=== PATIENT | male | born 1945 | race Hispanic/Latino ===

== ENCOUNTER 2022-05-04 23:50 | Inpatient (IN) | payer MEDICARE ==
--- NOTE | 2022-05-05 00:20 | Emergency Department Report ---
HPI - General Chief Complaint: Altered Mental Status Time Seen by Provider: 05/05/22 00:00 - [facility] HPI: Room 1 Patient is a 76-year-old male present with chief complaint of altered mental status. Per EMS the patient lives at home alone. The patient has zoroastrian members who come to check on the patient reported the patient has been on a sofa for the past 3 days. The charge nurse check on the patient 3 days ago and found the patient sitting on his sofa. The patient had apparently been eating there and had defecated on himself. [employer]ab[employer] members cleaned them off and then came back to check on him again 36 hours later to find him in the same position and again soiling himself. They came back to check on him later this evening and the patient was still in the same place appearing confused. Subsequently EMS was called and the patient was transported to the ED. In the ED the patient denies complaints but seems slightly confused. ED Past Medical Hx - Past Medical History Hx Hypertension: Yes Hx Diabetes: Yes Hx Arthritis: Yes (Gout) Additional medical history: Hyperlipidemia - Family History Family history: no significant - Social History Smoking Status: Former Smoker (None [id number]) Substance Use Type: None (Denies illicit drug use), Alcohol (Occasional) ED Review of Systems ROS: Stated complaint: AMS,FAILURE TO THRIVE Other details as noted in HPI Constitutional: no symptoms reported Eyes: denies: eye pain ENT: denies: throat pain Respiratory: no symptoms reported Cardiovascular: denies: chest pain Endocrine: no symptoms reported Gastrointestinal: denies: abdominal pain Genitourinary: denies: dysuria Musculoskeletal: denies: back pain Neurological: confusion Physical Exam - Physical Exam Vital Signs: Vital Signs 05/05/22 00:02 Temperature 98 F Pulse Rate 83 Respiratory 20 Rate Blood Pressure 137/80 O2 Sat by Pulse 95 Oximetry Physical Exam: GENERAL: The patient is well-developed well-nourished male lying on stretcher not appearing to be in acute distress. [] HEENT: Normocephalic. Atraumatic. Extraocular motions are intact. Patient has moist mucous membranes. NECK: Supple. Trachea midline CHEST/LUNGS: Clear to auscultation. There is no respiratory distress noted. HEART/CARDIOVASCULAR: Regular. There is no tachycardia. There is no gallop rub or murmur. ABDOMEN: Abdomen is soft, nontender. Patient has normal bowel sounds. There is no abdominal distention. SKIN: There is no rash. There is no edema. There is no diaphoresis. NEURO: The patient is awake and alert. Patient seems confused at times. The patient is cooperative. The patient has no focal neurologic deficits. The patient has normal speech. GCS 15 MUSCULOSKELETAL: There is no evidence of acute injury. ED Course Vital Signs 05/05/22 00:02 Temperature 98 F Pulse Rate 83 Respiratory 20 Rate Blood Pressure 137/80 O2 Sat by Pulse 95 Oximetry ED Medical Decision Making - Lab Data Result diagrams: 05/05/22 01:15 05/05/22 01:15 Laboratory Tests 05/05/22 05/05/22 05/05/22 01:15 01:15 01:15 WBC 10.6 RBC 5.18 H Hgb 14.4 Hct 43.7 MCV 84 MCH 28 MCHC 33 RDW 15.1 Plt Count 317 Lymph % (Auto) 16.1 [place] % (Auto) 6.5 Eos % (Auto) 1.1 Baso % (Auto) 0.5 Lymph # (Auto) 1.7 [place] # (Auto) 0.7 Eos # (Auto) 0.1 Baso # (Auto) 0.1 Seg Neutrophils % 75.8 H Seg Neutrophils # 8.0 H VBG pH Sodium 141 Potassium 4.0 Chloride 99.1 Carbon Dioxide 31 H Anion Gap 15 BUN 17 Creatinine 1.0 Estimated GFR > 60 BUN/Creatinine Ratio 17 Glucose 206 H Calcium 10.1 Total Bilirubin 0.70 AST 16 ALT 19 Alkaline Phosphatase 90 Ammonia CK-MB (CK-2) 3.8 Troponin T < 0.010 Total Protein 7.4 Albumin 3.7 L Albumin/Globulin Ratio 1.0 TSH Free T4 Plasma/Serum Alcohol < 0.01 05/05/22 05/05/22 05/05/22 01:15 01:15 01:15 WBC RBC Hgb Hct MCV MCH MCHC RDW Plt Count Lymph % (Auto) [place] % (Auto) Eos % (Auto) Baso % (Auto) Lymph # (Auto) [place] # (Auto) Eos # (Auto) Baso # (Auto) Seg Neutrophils % Seg Neutrophils # VBG pH 7.334 Sodium Potassium Chloride Carbon Dioxide Anion Gap BUN Creatinine Estimated GFR BUN/Creatinine Ratio Glucose Calcium Total Bilirubin AST ALT Alkaline Phosphatase Ammonia 10.0 L CK-MB (CK-2) Troponin T Total Protein Albumin Albumin/Globulin Ratio TSH 3.030 Free T4 1.26 Plasma/Serum Alcohol - EKG Data -: EKG Interpreted by Me EKG shows normal: sinus rhythm Rate: normal - EKG Data When compared to previous EKG there are: previous EKG unavailable Interpretation: other (Right bundle branch block) - Radiology Data Radiology results: report reviewed (CT head), image reviewed (CT head) [facility] [address] [id number] Cat Scan Report Signed Patient: ANTONINO HAAS MR#: [id number] : 1945 Acct:[id number] Age/Sex: 76 / M ADM Date: 05/04/22 Loc: ED Attending Dr: Ordering Physician: ONUR CERON MD Date of Service: 05/05/22 Procedure(s): CT head/brain wo con Accession Number(s): [id number] cc: ONUR CERON MD CT HEAD WITHOUT CONTRAST INDICATION / CLINICAL INFORMATION: Altered mental status. TECHNIQUE: All CT scans at this location are performed using CT dose reduction for ALARA by means of automated exposure control. COMPARISON: None available. FINDINGS: BRAIN PARENCHYMA: No acute intracranial hemorrhage. No evidence of recent infarct. No mass effect or midline shift. There is age-appropriate generalized atrophy. Confluent areas of decreased attenuation are seen along the periventricular white matter, likely representing chronic microvascular ischemic changes. VENTRICULAR SYSTEM/EXTRA-AXIAL SPACES: Ventricles are normal for age. No extra- axial fluid collection. ORBITS: Normal as visualized. SKELETAL SYSTEM/SOFT TISSUES: Normal bones and soft tissues. PARANASAL SINUSES/MASTOID AIR CELLS: No significant abnormality. ADDITIONAL FINDINGS: None. IMPRESSION: 1. No acute intracranial abnormality. 2. Additional findings as above. Signer Name: Elia Alves MD Signed: 05/05/2022 1:08 AM Workstation Name: [id number] Transcribed By: MN Dictated By: Elia Alves MD Electronically Authenticated By: Elia Alves MD Signed Date/Time: 05/05/22107 DD/ 6 TD/TT: - Differential Diagnosis Altered mental status, DKA, metabolic encephalopathy Critical care attestation.: If time is entered above; I have spent that time in minutes in the direct care of this critically ill patient, excluding procedure time. ED Disposition Clinical Impression: Altered mental status Disposition: 09 ADMITTED INPATIENT Is pt being admited?: Yes Does the pt Need Aspirin: Yes Condition: Fair Referrals: PRIMARY CARE,MD [Primary Care Provider] - 3-5 Days Time of Disposition: 02:20 (Care transferred to hospitalist (Dr. Brown))
--- NOTE | 2022-05-05 01:13 | Cat Scan Report ---
CT HEAD WITHOUT CONTRAST INDICATION / CLINICAL INFORMATION: Altered mental status. TECHNIQUE: All CT scans at this location are performed using CT dose reduction for ALARA by means of automated exposure control. COMPARISON: None available. FINDINGS: BRAIN PARENCHYMA: No acute intracranial hemorrhage. No evidence of recent infarct. No mass effect or midline shift. There is age-appropriate generalized atrophy. Confluent areas of decreased attenuation are seen along the periventricular white matter, likely representing chronic microvascular ischemic changes. VENTRICULAR SYSTEM/EXTRA-AXIAL SPACES: Ventricles are normal for age. No extra-axial fluid collection . ORBITS: Normal as visualized. SKELETAL SYSTEM/SOFT TISSUES: Normal bones and soft tissues. PARANASAL SINUSES/MASTOID AIR CELLS: No significant abnormality. ADDITIONAL FINDINGS: None. IMPRESSION: 1. No acute intracranial abnormality. 2. Additional findings as above. Signer Name: Elia Alves MD Signed: 05/05/2022 1:08 AM Workstation Name: [id number]
[2022-05-05 02:03] LABS: Basophils # (Auto) 0.1 K/mm3 (0.0-0.1); Basophils % (Auto) 0.5 % (0.0-1.8); Eosinophils # (Auto) 0.1 K/mm3 (0.0-0.4); Eosinophils % (Auto) 1.1 % (0.0-4.3); Hematocrit 43.7 % (35.5-45.6); Hemoglobin 14.4 gm/dl (11.8-15.2); Lymphocytes # (Auto) 1.7 K/mm3 (1.2-5.4); Lymphocytes % (Auto) 16.1 % (13.4-35.0); Mean Corpuscular HGB Conc 33 % (32-34); Mean Corpuscular Volume 84 fl (84-94); Monocytes # (Auto) 0.7 K/mm3 (0.0-0.8); Monocytes % (Auto) 6.5 % (0.0-7.3); Platelet Count 317 K/mm3 (140-440); Red Blood Count 5.18 M/mm3 (3.65-5.03); Red Cell Distribution Width 15.1 % (13.2-15.2)
[2022-05-05 02:05] LABS: Creatine Kinase MB 3.8 ng/mL (0.0-4.0)
[2022-05-05 02:07] LABS: Alanine Aminotransferase 19 units/L (7-56); Albumin 3.7 g/dL (3.9-5); BUN/Creatinine Ratio 17; Blood Urea Nitrogen 17 mg/dL (9-20); Calcium 10.1 mg/dL (8.4-10.2); Hemolysis Index 3
[2022-05-05 02:11] LABS: Free T4 (Free Thyroxine) 1.26 ng/dL (0.76-1.46)
[2022-05-05 02:57] LABS: Bilirubin,Urine Negative (Negative); Blood,Urine Negative (Negative); Color,Urine Yellow (Yellow); Protein,Urine <15 mg/dL mg/dL (Negative)
[2022-05-05 02:58] LABS: Urobilinogen,Urine < 2.0 mg/dL (<2.0)
[2022-05-05 03:00] LABS: Bacteria,Urine 1+ /HPF (Negative); Hyaline Casts,Urine 1 /LPF; Mucus,Urine FEW /HPF; RBC,Urine < 1.0 /HPF (0.0-6.0)
[2022-05-05] MEDS ORDERED: MORPHINE 4 MG/1 ML INJ IV PRN (03:32)
[2022-05-05] MEDS ORDERED: MORPHINE 2 MG/1 ML INJ IV PRN (03:32)
[2022-05-05] MEDS ORDERED: ONDANSETRON 4 MG/2 ML INJ IV PRN (03:32)
[2022-05-05] MEDS ORDERED: ACETAMINOPHEN 325 MG TAB PO PRN (03:32)
[2022-05-05] MEDS ORDERED: DEXTROSE 50% IN WATER (25GM) 50 ML SYRINGE IV PRN (03:32)
[2022-05-05] MEDS ORDERED: MAGNESIUM HYDROXIDE (MOM) ORAL LIQD UDC PO PRN (03:32)
--- NOTE | 2022-05-05 03:48 | History and Physical Report ---
History of Present Illness Date of examination: 05/05/22 Date of admission: 05/05/22 Chief complaint: Altered Mental Status History of present illness: 76-year-old -Serbian male with known history of hypertension, diabetes mellitus and hyperlipidemia who lives alone at home brought into the emergency room today for changes in mental status. [employer] members and other relatives check on patient almost on a daily basis. He however has been found to be sitting on exam so far for the past 3 days defecating on himself. [employer] members and other relatives were said to have cleaned him up. He states he has just not been able to get around well performing this ADLs. Work-up in the emergency room today, CT scan of the head was unremarkable. Labs were also found to be unremarkable except for blood glucose of 206. Past History Past Medical History: diabetes, hypertension, hyperlipidemia Social history: smoking (Former Smoker), alcohol abuse (Occasionally) Family history: no significant family history Medications and Allergies Allergies Allergy/AdvReac Type Severity Reaction Status Date / Time No Known Allergies Allergy Verified 05/05/22 03:47 Review of Systems Constitutional: no fever, no chills Ears, nose, mouth and throat: no nasal congestion, no sore throat Cardiovascular: no chest pain, no palpitations Respiratory: no cough, no shortness of breath Gastrointestinal: no abdominal pain, no nausea, no vomiting, no diarrhea Genitourinary Male: no dysuria, no hematuria, no flank pain Musculoskeletal: no neck pain, no low back pain Integumentary: no rash, no pruritis Neurological: no headaches, no confusion Psychiatric: no anxiety, no depression Endocrine: no polyphagia, no polydipsia, no polyuria, no nocturia Exam - Constitutional Vitals: Temp Pulse Resp BP Pulse Ox 98.6 F 74 12 172/85 97 05/05/22 00:42 05/05/22 02:46 05/05/22 02:46 05/05/22 02:46 05/05/22 02:46 General appearance: Present: no acute distress, well-nourished - EENT Eyes: Present: PERRL, EOM intact. Absent: scleral icterus ENT: hearing intact, clear oral mucosa, dentition normal - Neck Neck: Present: supple, normal ROM - Respiratory Respiratory effort: normal Respiratory: bilateral: CTA - Cardiovascular Rhythm: regular Heart Sounds: Present: S1 & S2. Absent: gallop, systolic murmur, diastolic murmur, rub, click - Extremities Extremities: no ischemia, pulses intact, pulses symmetrical, No edema, normal temperature, normal color, Full ROM Peripheral Pulses: within normal limits - Abdominal General gastrointestinal: Present: soft, non-tender, non-distended, normal bowel sounds. Absent: mass - Integumentary Integumentary: Present: clear, warm, dry, normal turgor. Absent: rash - Musculoskeletal Musculoskeletal: strength equal bilaterally - Psychiatric Psychiatric: appropriate mood/affect, intact judgment & insight, memory intact, cooperative - Neurologic Neurologic: CNII-XII intact, no focal deficits, moves all extremities HEART Score - HEART Score Troponin: Troponin T < 0.010 ng/mL (0.00-0.029) 05/05/22 01:15 Results - Labs CBC & Chem 7: 05/05/22 01:15 05/05/22 01:15 Labs: Abnormal lab results 05/05/22 05/05/22 05/05/22 Range/Units 01:15 01:15 01:15 RBC 5.18 H (3.65-5.03) M/mm3 Seg Neutrophils % 75.8 H (40.0-70.0) % Seg Neutrophils # 8.0 H (1.8-7.7) K/mm3 Carbon Dioxide 31 H (22-30) mmol/L Glucose 206 H (75-100) mg/dL Ammonia 10.0 L (25-60) umol/L Albumin 3.7 L (3.9-5) g/dL Assessment and Plan Assessment: 1. Altered mental status 2. Diabetes mellitus 3. Hyperlipidemia 4. Inability to take care of self Plan: 1. Patient admitted and placed on medical floor. Will monitor mental status. 2. Patient placed on sliding scale insulin. We will monitor Accu-Cheks. 3. Consult placed to case management for evaluation and possible placement. 4. Resume other routine home medications once reconciled. DVT prophylaxis: Subcutaneous heparin CODE STATUS: Full code
[2022-05-05] MEDS: INSULIN LISPRO 100 UNIT/ML SUB-Q SCH ×4 (09:26→22:31)
--- NOTE | 2022-05-05 10:24 | Progress Note ---
Assessment and Plan Assessment and plan: 76-year-old -[place] male with known history of hypertension, diabetes mellitus and hyperlipidemia who lives alone at home brought into the emergency room for changes in mental status. [employer] members and other relatives check on patient almost on a daily basis. He reportedly, however, was found to be sitting for the past 3 days in feces after defecating on himself. [employer] members and other relatives were said to have cleaned him up. He stated he has just not been able to get around well performing this ADLs. Work-up in the emergency room today, CT scan of the head was unremarkable. Severe debility/deconditioning Acute encephalopathy Diabetes mellitus type 2 Hyperlipidemia 05/05/2022. Patient does not appear to have any altered mentation. Cranial nerves II through XII are intact and patient with no focal deficits. Patient ambulates with assistance without any difficulty. No lateralizing signs or symptoms. We will check folate, B12 and ammonia levels. We will also check MRI. I discussed case with [facility] who is attempting to arrange for transfer for History Interval history: No new issues overnight Hospitalist Physical - Constitutional Vitals: Temp Pulse Resp BP Pulse Ox 98.0 F 70 19 172/91 94 05/05/22 09:13 05/05/22 09:13 05/05/22 09:13 05/05/22 09:13 05/05/22 09:13 General appearance: Present: no acute distress, well-nourished - EENT Eyes: Present: PERRL, EOM intact ENT: hearing intact, clear oral mucosa, dentition normal - Neck Neck: Present: supple, normal ROM - Respiratory Respiratory effort: normal Respiratory: bilateral: CTA - Cardiovascular Rhythm: regular Heart Sounds: Present: S1 & S2. Absent: gallop, rub - Extremities Extremities: no ischemia, No edema, Full ROM - Abdominal General gastrointestinal: soft, non-tender, non-distended, normal bowel sounds - Integumentary Integumentary: Present: clear, warm, dry - Neurologic Neurologic: CNII-XII intact, moves all extremities HEART Score - HEART Score Troponin: Troponin T < 0.010 ng/mL (0.00-0.029) 05/05/22 01:15 Results - Labs CBC & Chem 7: 05/05/22 01:15 05/05/22 01:15 Labs: Laboratory Last Values WBC 10.6 K/mm3 (4.5-11.0) 05/05/22 01:15 RBC 5.18 M/mm3 (3.65-5.03) H 05/05/22 01:15 Hgb 14.4 gm/dl (11.8-15.2) 05/05/22 01:15 Hct 43.7 % (35.5-45.6) 05/05/22 01:15 MCV 84 fl (84-94) 05/05/22 01:15 MCH 28 pg (28-32) 05/05/22 01:15 MCHC 33 % (32-34) 05/05/22 01:15 RDW 15.1 % (13.2-15.2) 05/05/22 01:15 Plt Count 317 K/mm3 (140-440) 05/05/22 01:15 Lymph % (Auto) 16.1 % (13.4-35.0) 05/05/22 01:15 [place] % (Auto) 6.5 % (0.0-7.3) 05/05/22 01:15 Eos % (Auto) 1.1 % (0.0-4.3) 05/05/22 01:15 Baso % (Auto) 0.5 % (0.0-1.8) 05/05/22 01:15 Lymph # (Auto) 1.7 K/mm3 (1.2-5.4) 05/05/22 01:15 [place] # (Auto) 0.7 K/mm3 (0.0-0.8) 05/05/22 01:15 Eos # (Auto) 0.1 K/mm3 (0.0-0.4) 05/05/22 01:15 Baso # (Auto) 0.1 K/mm3 (0.0-0.1) 05/05/22 01:15 Seg Neutrophils % 75.8 % (40.0-70.0) H 05/05/22 01:15 Seg Neutrophils # 8.0 K/mm3 (1.8-7.7) H 05/05/22 01:15 VBG pH 7.334 (7.320-7.420) 05/05/22 01:15 Sodium 141 mmol/L (137-145) 05/05/22 01:15 Potassium 4.0 mmol/L (3.6-5.0) 05/05/22 01:15 Chloride 99.1 mmol/L (98-107) 05/05/22 01:15 Carbon Dioxide 31 mmol/L (22-30) H 05/05/22 01:15 Anion Gap 15 mmol/L 05/05/22 01:15 BUN 17 mg/dL (9-20) 05/05/22 01:15 Creatinine 1.0 mg/dL (0.8-1.3) 05/05/22 01:15 Estimated GFR > 60 ml/min 05/05/22 01:15 BUN/Creatinine Ratio 17 % 05/05/22 01:15 Glucose 206 mg/dL (75-100) H 05/05/22 01:15 POC Glucose 184 mg/dL (70-105) H 05/05/22 08:13 Calcium 10.1 mg/dL (8.4-10.2) 05/05/22 01:15 Total Bilirubin 0.70 mg/dL (0.1-1.2) 05/05/22 01:15 AST 16 units/L (5-40) 05/05/22 01:15 ALT 19 units/L (7-56) 05/05/22 01:15 Alkaline Phosphatase 90 units/L (35-129) 05/05/22 01:15 Ammonia 10.0 umol/L (25-60) L 05/05/22 01:15 Total Creatine Kinase 142 units/L (55-170) 05/05/22 01:15 CK-MB (CK-2) 3.8 ng/mL (0.0-4.0) 05/05/22 01:15 CK-MB (CK-2) Rel Index 2.6 (0-4) 05/05/22 01:15 Troponin T < 0.010 ng/mL (0.00-0.029) 05/05/22 01:15 Total Protein 7.4 g/dL (6.3-8.2) 05/05/22 01:15 Albumin 3.7 g/dL (3.9-5) L 05/05/22 01:15 Albumin/Globulin Ratio 1.0 % 05/05/22 01:15 TSH 3.030 mlU/mL (0.270-4.200) 05/05/22 01:15 Free T4 1.26 ng/dL (0.76-1.46) 05/05/22 01:15 Urine Color Yellow (Yellow) 05/05/22 02:42 Urine Turbidity Clear (Clear) 05/05/22 02:42 Urine pH 5.0 (5.0-7.0) 05/05/22 02:42 Ur Specific [place] 1.015 (1.003-1.030) 05/05/22 02:42 Urine Protein <15 mg/dl mg/dL (Negative) 05/05/22 02:42 Urine Glucose (UA) Trace mg/dL (Negative) 05/05/22 02:42 Urine Ketones Negative mg/dL (Negative) 05/05/22 02:42 Urine Blood Negative (Negative) 05/05/22 02:42 Urine Nitrite Negative (Negative) 05/05/22 02:42 Urine Bilirubin Negative (Negative) 05/05/22 02:42 Urine Urobilinogen < 2.0 mg/dL (<2.0) 05/05/22 02:42 Ur Leukocyte Esterase Negative (Negative) 05/05/22 02:42 Urine WBC (Auto) 2.0 /HPF (0.0-6.0) 05/05/22 02:42 Urine RBC (Auto) < 1.0 /HPF (0.0-6.0) 05/05/22 02:42 U Epithel Cells (Auto) < 1.0 /HPF (0-13.0) 05/05/22 02:42 Urine Bacteria (Auto) 1+ /HPF (Negative) 05/05/22 02:42 Hyaline Casts 1 /LPF 05/05/22 02:42 Urine Mucus Few /HPF 05/05/22 02:42 Plasma/Serum Alcohol < 0.01 % (0-0.07) 05/05/22 01:15 Active Medications - Current Medications Current Medications: Generic Name Dose Route Start Last Admin Trade Name Freq PRN Reason Stop Dose Admin Acetaminophen 650 mg 05/05/22 03:32 Acetaminophen 325 Mg Tab PO Q4H PRN Pain MILD(1-3)/Fever >100.5/LAN Dextrose 50 ml 05/05/22 03:32 Dextrose 50% In Water (25gm) 50 Ml Syringe IV Q30MIN PRN Hypoglycemia Protocol Sodium Chloride 1,000 mls @ 75 mls/hr 05/05/22 03:45 Nacl 0.9% 1000 Ml IV DIRECT GONZALEZ Insulin Human Lispro 0 unit 05/05/22 07:30 05/05/22 09:26 Insulin Lispro 100 Unit/Ml SUB-Q 2 unit ACHS GONZALEZ Administration Protocol Magnesium Hydroxide 30 ml 05/05/22 03:32 Magnesium Hydroxide (Mom) Oral Liqd Udc PO Q4H PRN Constipation Morphine Sulfate 2 mg 05/05/22 03:32 Morphine 2 Mg/1 Ml Inj IV Q4H PRN Pain, Moderate (4-6) Morphine Sulfate 4 mg 05/05/22 03:32 Morphine 4 Mg/1 Ml Inj IV Q4H PRN Pain , Severe (7-10) Ondansetron HCl 4 mg 05/05/22 03:32 Ondansetron 4 Mg/2 Ml Inj IV Q8H PRN Nausea And Vomiting Sodium Chloride 10 ml 05/05/22 10:00 05/05/22 09:27 Sodium Chloride 0.9% 10 Ml Flush Syringe IV 10 ml BID GONZALEZ Administration Sodium Chloride 10 ml 05/05/22 03:32 Sodium Chloride 0.9% 10 Ml Flush Syringe IV PRN PRN LINE FLUSH
[2022-05-05] MEDS: SODIUM CHLORIDE 0.9% 1000 ML 1,000 ML IV SCH (13:05)
[2022-05-06 07:14] LABS: Basophils # (Auto) 0.1 K/mm3 (0.0-0.1); Basophils % (Auto) 0.7 % (0.0-1.8); Eosinophils # (Auto) 0.2 K/mm3 (0.0-0.4); Eosinophils % (Auto) 1.8 % (0.0-4.3); Hematocrit 41.1 % (35.5-45.6); Hemoglobin 13.7 gm/dl (11.8-15.2); Lymphocytes # (Auto) 1.5 K/mm3 (1.2-5.4); Lymphocytes % (Auto) 16.5 % (13.4-35.0); Mean Corpuscular HGB Conc 33 % (32-34); Mean Corpuscular Volume 83 fl (84-94); Monocytes # (Auto) 0.6 K/mm3 (0.0-0.8); Monocytes % (Auto) 6.9 % (0.0-7.3); Platelet Count 283 K/mm3 (140-440); Red Blood Count 4.94 M/mm3 (3.65-5.03); Red Cell Distribution Width 14.8 % (13.2-15.2)
[2022-05-06 07:27] LABS: BUN/Creatinine Ratio 15; Blood Urea Nitrogen 12 mg/dL (9-20); Calcium 9.2 mg/dL (8.4-10.2); Hemolysis Index 6
[2022-05-06] MEDS: INSULIN LISPRO 100 UNIT/ML SUB-Q SCH ×3 (08:43→16:27)
--- NOTE | 2022-05-06 09:11 | Progress Note ---
Assessment and Plan Assessment and plan: 76-year-old -Filipino male with known history of hypertension, diabetes mellitus and hyperlipidemia who lives alone at home brought into the emergency room for changes in mental status. Cong[employer] members and other relatives check on patient almost on a daily basis. He reportedly, however, was found to be sitting for the past 3 days in feces after defecating on himself. Congregation members and other relatives were said to have cleaned him up. He stated he has just not been able to get around well performing this ADLs. Work-up in the emergency room today, CT scan of the head was unremarkable. Severe debility/deconditioning Acute encephalopathy Diabetes mellitus type 2 Hyperlipidemia 05/05/2022. Patient does not appear to have any altered mentation. Cranial nerves II through XII are intact and patient with no focal deficits. Patient ambulates with assistance without any difficulty. No lateralizing signs or symptoms. We will check folate, B12 and ammonia levels. We will also check MRI. I discussed case with [facility] who is attempting to arrange for transfer. 05/06/2022. Await physical therapy evaluation. Follow-up MRI today. B12, folate, ammonia and TSH levels within normal limits. Patient awaiting transfer to [facility] facility History Interval history: No new issues overnight Hospitalist Physical - Constitutional Vitals: Temp Pulse Resp BP Pulse Ox 98.3 F 64 20 141/82 93 05/06/22 05:51 05/06/22 05:51 05/06/22 05:51 05/06/22 05:51 05/06/22 05:51 General appearance: Present: no acute distress, well-nourished - EENT Eyes: Present: PERRL, EOM intact ENT: hearing intact, clear oral mucosa, dentition normal - Neck Neck: Present: supple, normal ROM - Respiratory Respiratory effort: normal Respiratory: bilateral: CTA - Cardiovascular Rhythm: regular Heart Sounds: Present: S1 & S2. Absent: gallop, rub - Extremities Extremities: no ischemia, No edema, Full ROM - Abdominal General gastrointestinal: soft, non-tender, non-distended, normal bowel sounds - Integumentary Integumentary: Present: clear, warm, dry - Neurologic Neurologic: CNII-XII intact, moves all extremities HEART Score - HEART Score Troponin: Troponin T < 0.010 ng/mL (0.00-0.029) 05/05/22 01:15 Results - Labs CBC & Chem 7: 05/06/22 06:21 05/06/22 06:21 Labs: Laboratory Last Values WBC 9.2 K/mm3 (4.5-11.0) 05/06/22 06:21 RBC 4.94 M/mm3 (3.65-5.03) 05/06/22 06:21 Hgb 13.7 gm/dl (11.8-15.2) 05/06/22 06:21 Hct 41.1 % (35.5-45.6) 05/06/22 06:21 MCV 83 fl (84-94) L 05/06/22 06:21 MCH 28 pg (28-32) 05/06/22 06:21 MCHC 33 % (32-34) 05/06/22 06:21 RDW 14.8 % (13.2-15.2) 05/06/22 06:21 Plt Count 283 K/mm3 (140-440) 05/06/22 06:21 Lymph % (Auto) 16.5 % (13.4-35.0) 05/06/22 06:21 [place] % (Auto) 6.9 % (0.0-7.3) 05/06/22 06:21 Eos % (Auto) 1.8 % (0.0-4.3) 05/06/22 06:21 Baso % (Auto) 0.7 % (0.0-1.8) 05/06/22 06:21 Lymph # (Auto) 1.5 K/mm3 (1.2-5.4) 05/06/22 06:21 [place] # (Auto) 0.6 K/mm3 (0.0-0.8) 05/06/22 06:21 Eos # (Auto) 0.2 K/mm3 (0.0-0.4) 05/06/22 06:21 Baso # (Auto) 0.1 K/mm3 (0.0-0.1) 05/06/22 06:21 Seg Neutrophils % 74.1 % (40.0-70.0) H 05/06/22 06:21 Seg Neutrophils # 6.8 K/mm3 (1.8-7.7) 05/06/22 06:21 VBG pH 7.334 (7.320-7.420) 05/05/22 01:15 Sodium 136 mmol/L (137-145) L 05/06/22 06:21 Potassium 3.7 mmol/L (3.6-5.0) 05/06/22 06:21 Chloride 99.2 mmol/L (98-107) 05/06/22 06:21 Carbon Dioxide 28 mmol/L (22-30) 05/06/22 06:21 Anion Gap 13 mmol/L 05/06/22 06:21 BUN 12 mg/dL (9-20) 05/06/22 06:21 Creatinine 0.8 mg/dL (0.8-1.3) 05/06/22 06:21 Estimated GFR > 60 ml/min 05/06/22 06:21 BUN/Creatinine Ratio 15 % 05/06/22 06:21 Glucose 166 mg/dL (75-100) H 05/06/22 06:21 POC Glucose 197 mg/dL (70-105) H 05/06/22 07:48 Calcium 9.2 mg/dL (8.4-10.2) 05/06/22 06:21 Total Bilirubin 0.70 mg/dL (0.1-1.2) 05/05/22 01:15 AST 16 units/L (5-40) 05/05/22 01:15 ALT 19 units/L (7-56) 05/05/22 01:15 Alkaline Phosphatase 90 units/L (35-129) 05/05/22 01:15 Ammonia 10.0 umol/L (25-60) L 05/05/22 01:15 Total Creatine Kinase 142 units/L (55-170) 05/05/22 01:15 CK-MB (CK-2) 3.8 ng/mL (0.0-4.0) 05/05/22 01:15 CK-MB (CK-2) Rel Index 2.6 (0-4) 05/05/22 01:15 Troponin T < 0.010 ng/mL (0.00-0.029) 05/05/22 01:15 Total Protein 7.4 g/dL (6.3-8.2) 05/05/22 01:15 Albumin 3.7 g/dL (3.9-5) L 05/05/22 01:15 Albumin/Globulin Ratio 1.0 % 05/05/22 01:15 Vitamin B12 745.8 pg/mL (211-911) 05/05/22 01:15 Folate 17.29 ng/mL (7.3-26.0) 05/05/22 01:15 TSH 3.030 mlU/mL (0.270-4.200) 05/05/22 01:15 Free T4 1.26 ng/dL (0.76-1.46) 05/05/22 01:15 Urine Color Yellow (Yellow) 05/05/22 02:42 Urine Turbidity Clear (Clear) 05/05/22 02:42 Urine pH 5.0 (5.0-7.0) 05/05/22 02:42 Ur Specific [place] 1.015 (1.003-1.030) 05/05/22 02:42 Urine Protein <15 mg/dl mg/dL (Negative) 05/05/22 02:42 Urine Glucose (UA) Trace mg/dL (Negative) 05/05/22 02:42 Urine Ketones Negative mg/dL (Negative) 05/05/22 02:42 Urine Blood Negative (Negative) 05/05/22 02:42 Urine Nitrite Negative (Negative) 05/05/22 02:42 Urine Bilirubin Negative (Negative) 05/05/22 02:42 Urine Urobilinogen < 2.0 mg/dL (<2.0) 05/05/22 02:42 Ur Leukocyte Esterase Negative (Negative) 05/05/22 02:42 Urine WBC (Auto) 2.0 /HPF (0.0-6.0) 05/05/22 02:42 Urine RBC (Auto) < 1.0 /HPF (0.0-6.0) 05/05/22 02:42 U Epithel Cells (Auto) < 1.0 /HPF (0-13.0) 05/05/22 02:42 Urine Bacteria (Auto) 1+ /HPF (Negative) 05/05/22 02:42 Hyaline Casts 1 /LPF 05/05/22 02:42 Urine Mucus Few /HPF 05/05/22 02:42 Plasma/Serum Alcohol < 0.01 % (0-0.07) 05/05/22 01:15 Aguirre/IV: Voiding Method Toilet Active Medications - Current Medications Current Medications: Generic Name Dose Route Start Last Admin Trade Name Freq PRN Reason Stop Dose Admin Acetaminophen 650 mg 05/05/22 03:32 Acetaminophen 325 Mg Tab PO Q4H PRN Pain MILD(1-3)/Fever >100.5/LAN Dextrose 50 ml 05/05/22 03:32 Dextrose 50% In Water (25gm) 50 Ml Syringe IV Q30MIN PRN Hypoglycemia Protocol Sodium Chloride 1,000 mls @ 75 mls/hr 05/05/22 03:45 05/05/22 13:05 Nacl 0.9% 1000 Ml IV 75 mls/hr DIRECT GONZALEZ Administration Insulin Human Lispro 0 unit 05/05/22 07:30 05/06/22 08:43 Insulin Lispro 100 Unit/Ml SUB-Q 1 unit ACHS GONZALEZ Administration Protocol Magnesium Hydroxide 30 ml 05/05/22 03:32 Magnesium Hydroxide (Mom) Oral Liqd Udc PO Q4H PRN Constipation Morphine Sulfate 2 mg 05/05/22 03:32 Morphine 2 Mg/1 Ml Inj IV Q4H PRN Pain, Moderate (4-6) Morphine Sulfate 4 mg 05/05/22 03:32 Morphine 4 Mg/1 Ml Inj IV Q4H PRN Pain , Severe (7-10) Ondansetron HCl 4 mg 05/05/22 03:32 Ondansetron 4 Mg/2 Ml Inj IV Q8H PRN Nausea And Vomiting Sodium Chloride 10 ml 05/05/22 10:00 05/05/22 22:31 Sodium Chloride 0.9% 10 Ml Flush Syringe IV 10 ml BID GONZALEZ Administration Sodium Chloride 10 ml 05/05/22 03:32 Sodium Chloride 0.9% 10 Ml Flush Syringe IV PRN PRN LINE FLUSH Nutrition/Malnutrition Assess - Dietary Evaluation Nutrition/Malnutrition Findings: Nutrition Notes Start: 05/05/22 12:59 Freq: Status: Active Protocol: Document 05/05/22 12:59 ZARA (Rec: 05/05/22 13:10 ZARA [id number]) Nutrition Notes Need for Assessment generated from: MD Order,Education Initial or Follow up Brief Note Current Diagnosis Diabetes,Hypertension, Hyperlipidemia Other Pertinent Diagnosis AMS, ADL Dysfunction, Encephalopathy. Current Diet Consistent Carbohydrates Diet (since L 05/05). Height 6 ft 1 in Weight 115.666 kg [place] Body Weight (kg) 83.63 BMI 33.6 Intake Prior to Admission Good Weight change and time frame Pt denies having loss body weight [employer]. Weight Status Obese Subjective/Other Information RD consult for nutrition education assessment. No reports available on Pt's PO intake of meals at the time , will assess at F/U. Pt is on Room Air, O2 saturation @ 98%, according to Physical Assessment History notes. Pt needs total assistance with ADL activities, not a candidate for Nutrition Education. Percent of energy/protein needs met: Prescribed Consistent Carbohydrates Diet provides for energy/protein needs (2, 061 Kcal/91 g) during LOS. Nutrition Intervention Follow-Up By: 05/12/22 Additional Comments Continue monitoring food tolerance, %PO intake of meals , and BM.
[2022-05-06] MEDS: SODIUM CHLORIDE 0.9% 1000 ML 1,000 ML IV SCH (16:21)
[2022-05-06] MEDS ORDERED: hydrALAZINE 10 MG TAB PO ONE (23:27)
[2022-05-07] MEDS: INSULIN LISPRO 100 UNIT/ML SUB-Q SCH ×4 (00:20→18:12)
[2022-05-07] MEDS: SODIUM CHLORIDE 0.9% 1000 ML 1,000 ML IV SCH (05:11)
[2022-05-07 06:50] LABS: Basophils # (Auto) 0.1 K/mm3 (0.0-0.1); Basophils % (Auto) 0.6 % (0.0-1.8); Eosinophils # (Auto) 0.2 K/mm3 (0.0-0.4); Eosinophils % (Auto) 1.9 % (0.0-4.3); Hematocrit 40.4 % (35.5-45.6); Hemoglobin 13.7 gm/dl (11.8-15.2); Lymphocytes # (Auto) 1.7 K/mm3 (1.2-5.4); Mean Corpuscular HGB Conc 34 % (32-34); Mean Corpuscular Volume 83 fl (84-94); Monocytes # (Auto) 0.6 K/mm3 (0.0-0.8); Monocytes % (Auto) 7.3 % (0.0-7.3); Platelet Count 287 K/mm3 (140-440); Red Blood Count 4.87 M/mm3 (3.65-5.03); Red Cell Distribution Width 14.5 % (13.2-15.2)
[2022-05-07 07:13] LABS: Blood Urea Nitrogen 9 mg/dL (9-20); Calcium 9.1 mg/dL (8.4-10.2); Hemolysis Index 1
[2022-05-07 07:21] LABS: BUN/Creatinine Ratio 13
[2022-05-07] MEDS ORDERED: LINAGLIPTIN 5 MG TAB PO SCH (08:00)
[2022-05-07] MEDS ORDERED: CHOLECALCIFEROL (VIT D3) 5,000 UNIT TAB PO SCH (10:00)
[2022-05-07] MEDS ORDERED: allopurinoL 100 MG TAB PO SCH (10:00)
[2022-05-07] MEDS ORDERED: amLODIPine 10 MG TAB PO SCH (10:00)
[2022-05-07] MEDS ORDERED: LISINOPRIL 10 MG TAB PO SCH (10:00)
--- NOTE | 2022-05-07 10:05 | Magnetic Resonance Report ---
MR brain wo con INDICATION / CLINICAL INFORMATION: 76 years Male; AMS. TECHNIQUE: Multiplanar, multisequence MR images of the brain were obtained. COMPARISON: None available. FINDINGS: BRAIN / INTRACRANIAL CONTENTS: No acute hemorrhage, mass effect, midline shift, hydrocephalus, or acu te, large territorial infarct. [id number], diffuse cerebral and mild cerebellar atrophy. Moderate degree of hippocampal atroph y suggested bilaterally. There are moderate to marked, confluent areas of increased signal intensity on FLAIR imaging in the w porfirio matter of the cerebral hemispheres, as well as the gangliocapsular regions. These are nonspecifi c findings and may be related to microangiopathy (hypertension, diabetes, atherosclerosis), given the patient's age. Pontine disease noted. CRANIOCERVICAL JUNCTION: No significant abnormality. VASCULAR FLOW-VOIDS: No significant abnormality. ORBITS: No significant abnormality of visualized orbits. SINUSES / MASTOIDS: Mild to moderate mucosal thickening seen in the inferior mastoids on the right. M ild on the left. ADDITIONAL FINDINGS: None. IMPRESSION: 1. No focal mass, hemorrhage, hydrocephalus, or acute ischemia. Signer Name: Alex Galan MD, III Signed: 05/07/2022 10:01 AM Workstation Name: [id number]
--- NOTE | 2022-05-07 10:14 | Progress Note ---
Assessment and Plan Assessment and plan: 76-year-old -Spanish male with known history of hypertension, diabetes mellitus and hyperlipidemia who lives alone at home brought into the emergency room for changes in mental status. [employer] members and other relatives check on patient almost on a daily basis. He reportedly, however, was found to be sitting for the past 3 days in feces after defecating on himself. [employer] members and other relatives were said to have cleaned him up. He stated he has just not been able to get around well performing this ADLs. Work-up in the emergency room today, CT scan of the head was unremarkable. Severe debility/deconditioning Acute encephalopathy Diabetes mellitus type 2 Hyperlipidemia 05/05/2022. Patient does not appear to have any altered mentation. Cranial nerves II through XII are intact and patient with no focal deficits. Patient ambulates with assistance without any difficulty. No lateralizing signs or symptoms. We will check folate, B12 and ammonia levels. We will also check MRI. I discussed case with [facility] who is attempting to arrange for transfer. 05/06/2022. Await physical therapy evaluation. Follow-up MRI today. B12, folate, ammonia and TSH levels within normal limits. Patient awaiting transfer to [facility] 05/07/2022. MRI is negative. Await physical therapy evaluation for recommendations regarding discharge. Patient is alert and oriented x3. Patient appears to be back to baseline with mental status History Interval history: No new issues overnight Hospitalist Physical - Constitutional Vitals: Temp Pulse Resp BP Pulse Ox 98.0 F 70 20 153/84 95 05/07/22 06:11 05/07/22 06:11 05/07/22 06:11 05/07/22 06:11 05/07/22 06:11 General appearance: Present: no acute distress, well-nourished - EENT Eyes: Present: PERRL, EOM intact ENT: hearing intact, clear oral mucosa, dentition normal - Neck Neck: Present: supple, normal ROM - Respiratory Respiratory effort: normal Respiratory: bilateral: CTA - Cardiovascular Rhythm: regular Heart Sounds: Present: S1 & S2. Absent: gallop, rub - Extremities Extremities: no ischemia, No edema, Full ROM - Abdominal General gastrointestinal: soft, non-tender, non-distended, normal bowel sounds - Integumentary Integumentary: Present: clear, warm, dry - Neurologic Neurologic: CNII-XII intact, moves all extremities HEART Score - HEART Score Troponin: Troponin T < 0.010 ng/mL (0.00-0.029) 05/05/22 01:15 Results - Labs CBC & Chem 7: 05/07/22 05:50 05/07/22 05:50 Labs: Laboratory Last Values WBC 8.3 K/mm3 (4.5-11.0) 05/07/22 05:50 RBC 4.87 M/mm3 (3.65-5.03) 05/07/22 05:50 Hgb 13.7 gm/dl (11.8-15.2) 05/07/22 05:50 Hct 40.4 % (35.5-45.6) 05/07/22 05:50 MCV 83 fl (84-94) L 05/07/22 05:50 MCH 28 pg (28-32) 05/07/22 05:50 MCHC 34 % (32-34) 05/07/22 05:50 RDW 14.5 % (13.2-15.2) 05/07/22 05:50 Plt Count 287 K/mm3 (140-440) 05/07/22 05:50 Lymph % (Auto) 20.0 % (13.4-35.0) 05/07/22 05:50 [place] % (Auto) 7.3 % (0.0-7.3) 05/07/22 05:50 Eos % (Auto) 1.9 % (0.0-4.3) 05/07/22 05:50 Baso % (Auto) 0.6 % (0.0-1.8) 05/07/22 05:50 Lymph # (Auto) 1.7 K/mm3 (1.2-5.4) 05/07/22 05:50 [place] # (Auto) 0.6 K/mm3 (0.0-0.8) 05/07/22 05:50 Eos # (Auto) 0.2 K/mm3 (0.0-0.4) 05/07/22 05:50 Baso # (Auto) 0.1 K/mm3 (0.0-0.1) 05/07/22 05:50 Seg Neutrophils % 70.2 % (40.0-70.0) H 05/07/22 05:50 Seg Neutrophils # 5.9 K/mm3 (1.8-7.7) 05/07/22 05:50 VBG pH 7.334 (7.320-7.420) 05/05/22 01:15 Sodium 141 mmol/L (137-145) 05/07/22 05:50 Potassium 3.6 mmol/L (3.6-5.0) 05/07/22 05:50 Chloride 104.2 mmol/L (98-107) 05/07/22 05:50 Carbon Dioxide 28 mmol/L (22-30) 05/07/22 05:50 Anion Gap 12 mmol/L 05/07/22 05:50 BUN 9 mg/dL (9-20) 05/07/22 05:50 Creatinine 0.7 mg/dL (0.8-1.3) L 05/07/22 05:50 Estimated GFR > 60 ml/min 05/07/22 05:50 BUN/Creatinine Ratio 13 % 05/07/22 05:50 Glucose 156 mg/dL (75-100) H 05/07/22 05:50 POC Glucose 282 mg/dL (70-105) H 05/07/22 08:18 Calcium 9.1 mg/dL (8.4-10.2) 05/07/22 05:50 Total Bilirubin 0.70 mg/dL (0.1-1.2) 05/05/22 01:15 AST 16 units/L (5-40) 05/05/22 01:15 ALT 19 units/L (7-56) 05/05/22 01:15 Alkaline Phosphatase 90 units/L (35-129) 05/05/22 01:15 Ammonia 10.0 umol/L (25-60) L 05/05/22 01:15 Total Creatine Kinase 142 units/L (55-170) 05/05/22 01:15 CK-MB (CK-2) 3.8 ng/mL (0.0-4.0) 05/05/22 01:15 CK-MB (CK-2) Rel Index 2.6 (0-4) 05/05/22 01:15 Troponin T < 0.010 ng/mL (0.00-0.029) 05/05/22 01:15 Total Protein 7.4 g/dL (6.3-8.2) 05/05/22 01:15 Albumin 3.7 g/dL (3.9-5) L 05/05/22 01:15 Albumin/Globulin Ratio 1.0 % 05/05/22 01:15 Vitamin B12 745.8 pg/mL (211-911) 05/05/22 01:15 Folate 17.29 ng/mL (7.3-26.0) 05/05/22 01:15 TSH 3.030 mlU/mL (0.270-4.200) 05/05/22 01:15 Free T4 1.26 ng/dL (0.76-1.46) 05/05/22 01:15 Urine Color Yellow (Yellow) 05/05/22 02:42 Urine Turbidity Clear (Clear) 05/05/22 02:42 Urine pH 5.0 (5.0-7.0) 05/05/22 02:42 Ur Specific [place] 1.015 (1.003-1.030) 05/05/22 02:42 Urine Protein <15 mg/dl mg/dL (Negative) 05/05/22 02:42 Urine Glucose (UA) Trace mg/dL (Negative) 05/05/22 02:42 Urine Ketones Negative mg/dL (Negative) 05/05/22 02:42 Urine Blood Negative (Negative) 05/05/22 02:42 Urine Nitrite Negative (Negative) 05/05/22 02:42 Urine Bilirubin Negative (Negative) 05/05/22 02:42 Urine Urobilinogen < 2.0 mg/dL (<2.0) 05/05/22 02:42 Ur Leukocyte Esterase Negative (Negative) 05/05/22 02:42 Urine WBC (Auto) 2.0 /HPF (0.0-6.0) 05/05/22 02:42 Urine RBC (Auto) < 1.0 /HPF (0.0-6.0) 05/05/22 02:42 U Epithel Cells (Auto) < 1.0 /HPF (0-13.0) 05/05/22 02:42 Urine Bacteria (Auto) 1+ /HPF (Negative) 05/05/22 02:42 Hyaline Casts 1 /LPF 05/05/22 02:42 Urine Mucus Few /HPF 05/05/22 02:42 Plasma/Serum Alcohol < 0.01 % (0-0.07) 05/05/22 01:15 Aguirre/IV: Voiding Method Urinal Active Medications - Current Medications Current Medications: Generic Name Dose Route Start Last Admin Trade Name Freq PRN Reason Stop Dose Admin Acetaminophen 650 mg 05/05/22 03:32 Acetaminophen 325 Mg Tab PO Q4H PRN Pain MILD(1-3)/Fever >100.5/LAN Allopurinol 100 mg 05/07/22 10:00 Allopurinol 100 Mg Tab PO QDAY [facility] Amlodipine Besylate 10 mg 05/07/22 10:00 Amlodipine 10 Mg Tab PO QDAY [facility] Atorvastatin Calcium 20 mg 05/06/22 23:14 Atorvastatin 20 Mg Tab PO QHS [facility] Cholecalciferol 5,000 unit 05/07/22 10:00 Cholecalciferol (Vit D3) 5,000 Unit Tab PO DAILY [facility] Dextrose 50 ml 05/05/22 03:32 Dextrose 50% In Water (25gm) 50 Ml Syringe IV Q30MIN PRN Hypoglycemia Protocol Sodium Chloride 1,000 mls @ 75 mls/hr 05/05/22 03:45 05/07/22 05:11 Nacl 0.9% 1000 Ml IV 75 mls/hr DIRECT GONZALEZ Administration Insulin Human Lispro 0 unit 05/05/22 07:30 05/07/22 08:37 Insulin Lispro 100 Unit/Ml SUB-Q 4 unit ACHS GONZALEZ Administration Protocol Linagliptin 5 mg 05/07/22 08:00 Linagliptin 5 Mg Tab PO QDDIAB [facility] Lisinopril 10 mg 05/07/22 10:00 Lisinopril 10 Mg Tab PO QDAY [facility] Magnesium Hydroxide 30 ml 05/05/22 03:32 Magnesium Hydroxide (Mom) Oral Liqd Udc PO Q4H PRN Constipation Metformin HCl 500 mg 05/07/22 08:00 Metformin 500 Mg Tab PO BIDDIAB [facility] Morphine Sulfate 2 mg 05/05/22 03:32 Morphine 2 Mg/1 Ml Inj IV Q4H PRN Pain, Moderate (4-6) Morphine Sulfate 4 mg 05/05/22 03:32 Morphine 4 Mg/1 Ml Inj IV Q4H PRN Pain , Severe (7-10) Ondansetron HCl 4 mg 05/05/22 03:32 Ondansetron 4 Mg/2 Ml Inj IV Q8H PRN Nausea And Vomiting Sodium Chloride 10 ml 05/05/22 10:00 05/07/22 00:20 Sodium Chloride 0.9% 10 Ml Flush Syringe IV 10 ml BID GONZALEZ Administration Sodium Chloride 10 ml 05/05/22 03:32 Sodium Chloride 0.9% 10 Ml Flush Syringe IV PRN PRN LINE FLUSH Nutrition/Malnutrition Assess - Dietary Evaluation Nutrition/Malnutrition Findings: Nutrition Notes Start: 05/05/22 12:59 Freq: Status: Active Protocol: Document 05/05/22 12:59 ZARA (Rec: 05/05/22 13:10 ZARA [id number]) Nutrition Notes Need for Assessment generated from: MD Order,Education Initial or Follow up Brief Note Current Diagnosis Diabetes,Hypertension, Hyperlipidemia Other Pertinent Diagnosis AMS, ADL Dysfunction, Encephalopathy. Current Diet Consistent Carbohydrates Diet (since L 05/05). Height 6 ft 1 in Weight 115.666 kg [place] Body Weight (kg) 83.63 BMI 33.6 Intake Prior to Admission Good Weight change and time frame Pt denies having loss body weight [employer]. Weight Status Obese Subjective/Other Information RD consult for nutrition education assessment. No reports available on Pt's PO intake of meals at the time , will assess at F/U. Pt is on Room Air, O2 saturation @ 98%, according to Physical Assessment History notes. Pt needs total assistance with ADL activities, not a candidate for Nutrition Education. Percent of energy/protein needs met: Prescribed Consistent Carbohydrates Diet provides for energy/protein needs (2, 061 Kcal/91 g) during LOS. Nutrition Intervention Follow-Up By: 05/12/22 Additional Comments Continue monitoring food tolerance, %PO intake of meals , and BM.
[2022-05-07] MEDS: metFORMIN 500 MG TAB PO SCH ×2 (10:17→18:12)
[2022-05-07 17:26] VITALS: BP 148/76
--- NOTE | 2022-05-07 18:08 | Electrocardiograph Report ---
[facility] Test Date: 2022-05-05 Test Time: 00:06:13 Pat Name: ANTONINO HAAS Department: Room: A369 1 Gender: M Second Cutter: JANIS : 1945 Requested By: ONUR CERON Order Number: [id number] Reading MD: Arun Hemphill Measurements Intervals [place] Rate: 77 P: 12 WV: 174 QRS: -51 QRSD: 146 T: 31 QT: 386 QTc: 438 Interpretive Statements Sinus rhythm RBBB AND LAFB No previous ECG available for comparison Electronically Signed On 05-07-2022 18:07:38 EDT by Arun Hemphill
--- NOTE | 2022-05-10 09:38 | Discharge Summary ---
Providers - Providers Date of Admission: 05/05/22 03:33 Date of discharge: 05/10/22 Attending physician: ISIDRO BLAIR 05/05/22 Consult to Case Management [CONS] Routine Services Needed at Discharge: Exam Proctor Notified:: DESTINEE Comment:: Lives alone. Unable to take care of self 05/05/22 03:33 Consult to Dietitian/Nutrition [CONS] Routine Physician Instructions: Reason For Exam: Reason for Consult: Diet education 05/06/22 06:08 Physical Therapy Evaluation and Treat [CONS] Routine Comment: Reason For Exam: evaluation and treatment 05/06/22 06:09 Occupational Therapy Evaluate and Treat [CONS] Routine Comment: Reason For Exam: evaluation and treatment Primary care physician: E [employer] Hospitalization Reason for admission: AMS Condition: Fair Hospital course: 76-year-old -[place]ander male with known history of hypertension, diabetes mellitus and hyperlipidemia who lives alone at home brought into the emergency room for changes in mental status. [employer]reg[employer] members and other relatives check on patient almost on a daily basis. He reportedly, however, was found to be sittin g for the past 3 days in feces after defecating on himself. Congregational members and other relatives were said to have cleaned him up. He stated he has just not been able to get around well performing this ADLs. Work-up in the emergency room today, CT scan of the head was unremarkable. Severe debility/deconditioning Acute encephalopathy Diabetes mellitus type 2 Hyperlipidemia 05/05/2022. Patient does not appear to have any altered mentation. Cranial nerves II through XII are intact and patient with no focal deficits. Patient ambulates with assistance without any difficulty. No lateralizing signs or symptoms. We will check folate, B12 and ammonia levels. We will also check MRI. I discussed case with [facility] who is attempting to arrange for transfer. 05/06/2022. Await physical therapy evaluation. Follow-up MRI today. B12, folate, ammonia and TSH levels within normal limits. Patient awaiting transfer to [facility] 05/07/2022. MRI is negative. Await physical therapy evaluation for recommendations regarding discharge. Patient is alert and oriented x3. Patient appears to be back to baseline with mental status. Patient was accepted at [facility] for transfer to [facility]. Dedicated discharge time 32 minutes Disposition: 02 SHORT TERM HOSPITAL Final Discharge Diagnosis (Prints w/discharge instructions): Severe debility/deconditioning. Acute encephalopathy. Diabetes mellitus type 2. Hyperlipidemia Core Measure Documentation - Palliative Care Palliative Care/ Comfort Measures: Not Applicable - Core Measures Any of the following diagnoses?: none Exam - Constitutional Vitals: Temp Pulse Resp BP Pulse Ox 98.7 F 79 18 148/76 98 05/07/22 16:36 05/07/22 16:36 05/07/22 16:36 05/07/22 16:36 05/07/22 21:45 General appearance: Present: no acute distress, well-nourished - EENT Eyes: Present: PERRL ENT: hearing intact, clear oral mucosa - Neck Neck: Present: supple, normal ROM - Respiratory Respiratory effort: normal Respiratory: bilateral: CTA - Cardiovascular Heart Sounds: Present: S1 & S2. Absent: rub, click - Extremities Extremities: pulses symmetrical, No edema Peripheral Pulses: within normal limits - Abdominal General gastrointestinal: Present: soft, non-tender, non-distended, normal bowel sounds Male genitourinary: Present: normal - Integumentary Integumentary: Present: clear, warm, dry - Musculoskeletal Musculoskeletal: gait normal, strength equal bilaterally - Psychiatric Psychiatric: appropriate mood/affect, intact judgment & insight - Neurologic Neurologic: CNII-XII intact, moves all extremities Plan Activity: advance as tolerated Weight Bearing Status: Weight Bear as Tolerated Diet: regular Follow up with: PRIMARY CARE, [Primary Care Provider] - 3-5 Days
== END 2022-05-07 21:45 | disposition short-term general hospital (02) | DRG 72 ==
LOC: ED 23:50 → 3A 05-05 03:33
PROVIDERS: ADMIT Internal Medicine Geriatric Medicine; ATTEND Hospitalist
DX: G93.40 Encephalopathy, unspecified (principal); R53.81 Other malaise; E78.5 Hyperlipidemia, unspecified; M10.9 Gout, unspecified; Z87.891 Personal history of nicotine dependence; I10 Essential (primary) hypertension; E11.9 Type 2 diabetes mellitus without complications
CPT/HCPCS: 36415; 70450; 70551; 80048; 80053; 80320; 81001; 82140; 82550; 82553; 82607; 82747; 82805; 82962; 84439; 84443; 84484; 85025; 93005; G0378; Q9967; G0480; J1815; J7030